=== PATIENT | female | born 1990 | race African-American/Black ===

== ENCOUNTER 2021-04-20 08:39 | Emergency (ER) | payer BC ==
[~2021-04-20] VITALS: Ht 170.2 cm; Wt 105.2 kg
== END 2021-04-20 13:06 | disposition home or self-care (01) ==
LOC: ER 08:39
DX: O20.8 Other hemorrhage in early pregnancy (principal); Z3A.01 Less than 8 weeks gestation of pregnancy; Z03.818 Encounter for observation for suspected exposure to other biological agents ruled out